=== PATIENT | female | born 1965 | race Caucasian/White ===

== ENCOUNTER → 2016-11-09 | Outpatient (CLI) | payer OTHER | END | disposition home or self-care (01) | LOC: KCIC MAMMO 13:18 | PROVIDERS: ATTEND Family Medicine ==

== ENCOUNTER → 2016-11-11 | Outpatient (CLI) | payer OTHER ==
--- NOTE | 2016-11-11 14:38 | KCIC ---
DATE: 11/11/2016 EXAM: MAMMO EM RALPH WIGGINS, BREAST LEFT HISTORY: Follow-up nodule COMPARISON: 06/24/2015, 06/11/2015 The breast parenchyma is heterogeneously dense, which could reduce sensitivity of mammography. Breast parenchyma level C. FINDINGS: 2-D and 3-D tomosynthesis imaging was performed in CC and MLO projections. There is a smooth 6 mm nodule in the left retroareolar region, best seen on the oblique tomogram #48 and cc tomogram #38. It lies just medial to the midline at the 9:00 location. The possible nodule seen just lateral to the midline of the left breast on the previous studies is not confirmed on today's tomographic images and probably represented a summation shadow. No new or enlarging breast densities are seen. Benign-appearing lymph node type densities are present in the left axillary tail region. No suspicious microcalcifications have developed. Left breast ultrasound, 11/11/2016: A targeted ultrasound of the left breast was performed at the 9:00 location. There is an oval-shaped smooth 8 x 4 x 6 mm nodule which corresponds to the mammographic abnormality. Lines approximately 1 cm from the nipple. There are low level echoes with posterior acoustic enhancement. This nodule is wider than tall. It is probably a complicated cyst. We also scanned the 3:00 location and compared to the previous exam of 06/24/2015. Heterogeneous fibrocystic type changes are again noted. No mass is evident in this region. IMPRESSION: Probable small complicated cyst at the 9:00 retroareolar location on the left. Follow-up left breast ultrasound in 6 months and bilateral mammography in one year is suggested. BI-RADS CATEGORY: 3 PROBABLY BENIGN FINDING(S)-SHORT INTERVAL FOLLOW-UP SUGGESTED RECOMMENDED FOLLOW-UP: 6M 6 MONTH FOLLOW-UP PQRS compliance statement: Patient information was entered into a reminder system with a target due date for the next mammogram. Mammography is a sensitive method for finding small breast cancers, but it does not detect them all and is not a substitute for careful clinical examination. A negative mammogram does not negate a clinically suspicious finding and should not result in delay in biopsying a clinically suspicious abnormality. "Our facility is accredited by the [employer] Mammography [employer]."
== END | disposition home or self-care (01) ==
LOC: KCIC MAMMO 13:02
PROVIDERS: ATTEND Family Medicine
DX: N63 Unspecified lump in breast (principal)
CPT/HCPCS: 76641; G0204; G0279; 77062; 77066

== ENCOUNTER → 2017-11-18 | Outpatient (CLI) | payer OTHER ==
--- NOTE | 2017-11-18 14:15 | KCIC ---
Bilateral diagnostic digital mammograms with 3-D tomosynthesis: Reason for examination: Follow-up left breast nodule. Comparison is made to previous studies dated 11/11/2016 and 06/19/2015. Bilateral mammograms in CC and oblique projections were obtained with 2-D imaging and 3-D tomosynthesis imaging on a Siemens Inspiration unit and reviewed on the workstation. Interpretation was made with the benefit of CAD. The skin and nipples show no abnormalities. No abnormal axillary lymph nodes are seen. The breast parenchyma is heterogeneously dense. (Breast density: Category C.) There continues to be a small circumscribed nodule in the retroareolar 9:00 position of the left breast which appears to be slightly smaller. There are no new dominant masses, suspicious calcifications or architectural distortion. Impression: Small nodule persists in the left retroareolar 9:00 position but appears to be slightly smaller. Ultrasound to follow. Your patient's mammogram demonstrates that she has dense breast tissue (breast density category C or D), which could hide abnormalities, and if she has other risk factors for breast cancer that have been identified, she might benefit from supplemental screening tests that may be suggested by you as her ordering physician. Dense breast tissue, in and of itself, is a relatively common condition. Therefore, this information is not provided to cause undue concern, but rather to raise your awareness and to promote discussion with your patient regarding the presence of other risk factors, in addition to dense breast tissue. Your patient's mammography results will be sent to her. BI-RAD Category 0: Incomplete. Needs additional imaging evaluation. Left breast ultrasound: Comparison is made to previous study dated 11/11/2016. In the 9:00 position 1 cm from the nipple, there continues to be a small anechoic lesion consistent with a cyst measuring 6.2 x 4.8 mm in greatest dimensions. No solid suspicious nodules are seen. No abnormal appearing lymph nodes are seen in the axilla. IMPRESSION: Small cyst in the 9:00 position which shows a slight decrease in size. No solid or suspicious nodules seen. Recommend routine mammographic follow-up. BI-RADS Category 2: Benign. "Our facility is accredited by the [employer] Mammography [employer]." This patient's information has been entered into a reminder system for the patient to be notified with the results of her examination and a target date for the next mammogram. Electronically signed by: Sabina Juares MD (11/18/2017 2:11 PM) [email or web address]
== END | disposition home or self-care (01) ==
LOC: KCIC MAMMO 12:59
PROVIDERS: ATTEND Internal Medicine
DX: N63.22 Unspecified lump in the left breast, upper inner quadrant (principal)
CPT/HCPCS: 76641; 77066; G0279; 77062

== ENCOUNTER → 2018-12-18 | Outpatient (CLI) | payer OTHER ==
--- NOTE | 2018-12-18 17:18 | KCIC ---
Bilateral digital screening mammograms with 3-D tomosynthesis: Reason for examination: Routine screening. Comparison is made to previous studies dated back to 06/11/2015. Bilateral mammograms in CC and oblique projections were obtained with 2-D imaging and 3-D tomosynthesis imaging on a Siemens Inspiration unit and reviewed on the workstation. Interpretation was made with the benefit of CAD. The skin and nipples show no abnormalities. No abnormal axillary lymph nodes are seen. The breast parenchyma shows scattered fatty and fibroglandular density. (Breast density: Category B.) There continues to be some asymmetric parenchyma in the retroareolar position of the left breast seen best on oblique view which is unchanged. There are no new dominant masses, suspicious calcifications or architectural distortion. Impression: No evidence of malignancy. Recommend routine screening. BI-RAD Category 2: Benign. "Our facility is accredited by the [employer] Mammography [employer]." This patient's information has been entered into a reminder system for the patient to be notified with the results of her examination and a target date for the next mammogram. Electronically signed by: Sabina Juares MD (12/18/2018 5:15 PM) [id number]
== END | disposition home or self-care (01) ==
LOC: KCIC MAMMO 15:16
PROVIDERS: ATTEND Internal Medicine
DX: Z12.31 Encounter for screening mammogram for malignant neoplasm of breast (principal); N64.89 Other specified disorders of breast
CPT/HCPCS: 77063; 77067

== ENCOUNTER → 2020-02-04 | Outpatient (CLI) | payer OTHER ==
--- NOTE | 2020-02-04 15:58 | KCIC ---
Bilateral digital screening mammograms with 3-D tomosynthesis: Reason for examination: Routine screening. Comparison is made to previous studies dated back to 04/23/2014. Bilateral mammograms in CC and oblique projections were obtained with 2-D imaging and 3-D tomosynthes is imaging on a Siemens Inspiration unit and reviewed on the workstation. Interpretation was made wit h the benefit of CAD. The skin and nipples show no abnormalities. No abnormal axillary lymph nodes are seen. The breast par enchyma shows scattered fatty and fibroglandular density. (Breast density: Category B.) There are con tinues to be some asymmetric parenchyma in the right breast which is unchanged. There are no new matt nant masses, suspicious calcifications or architectural distortion. Impression: No evidence of malignancy. Recommend routine screening. BI-RAD Category 2: Benign. "Our facility is accredited by the [employer] Mammography [employer]." This patient's information has been entered into a reminder system for the patient to be notified wit h the results of her examination and a target date for the next mammogram. Electronically signed by: Sabina Juares MD (02/04/2020 3:56 PM) [email or web address]
== END ==
LOC: KCIC MAMMO 14:49
PROVIDERS: ATTEND Internal Medicine
DX: Z12.31 Encounter for screening mammogram for malignant neoplasm of breast (principal)
CPT/HCPCS: 77063; 77067

== ENCOUNTER → 2020-03-21 | Outpatient (CLI) | payer OTHER ==
--- NOTE | 2020-03-21 14:40 | RAD ---
Abdominal ultrasound without comparison for elevated liver enzymes. TECHNIQUE AND FINDINGS: Real-time grayscale and color Doppler evaluation of the abdominal organs is p erformed. The aorta is nonaneurysmal. The pancreas is largely obscured by overlying bowel gas and hab itus. No gross abnormalities of the visualized portions the pancreas are identified. IVC is patent. L iver measures 13.8 cm and is normal in appearance with no intra or extrahepatic biliary ductal dilata tion. Portal vein is patent and hepatopedal. Gallbladder surgically absent. Common bile duct measures 2 mm in diameter. The right kidney measures 9.2 x 4.4 cm in the left measures 10.0 x 4.4 cm. No hydr onephrosis or parenchymal abnormality of either kidney. Normal color flow to both kidneys. The spleen is partially obscured, but measures 9.8 cm and is normal in its visualized extent. IMPRESSION: 1. Postsurgical changes of prior cholecystectomy with no sonographically discernible acute abdominal abnormality. Evaluation of the pancreas and spleen is limited. Electronically signed by: Ion Castillo MD (03/21/2020 2:38 PM) [id number]
== END ==
LOC: US 10:48
PROVIDERS: ATTEND Internal Medicine
DX: R94.5 Abnormal results of liver function studies (principal); Z90.49 Acquired absence of other specified parts of digestive tract
CPT/HCPCS: 76700

== ENCOUNTER → 2021-05-22 | Outpatient (CLI) | payer OTHER ==
--- NOTE | 2021-05-22 14:20 | KCIC ---
Bilateral digital screening mammograms with 3-D tomosynthesis: Reason for examination: Routine screening. Comparison is made to previous study dated studies dated back to 11/11/2016. Bilateral mammograms in CC and oblique projections were obtained with 2-D imaging and 3-D tomosynthes is imaging on a Siemens Inspiration unit and reviewed on the workstation. Interpretation was made wit h the benefit of CAD. The skin and nipples show no abnormalities. No abnormal axillary lymph nodes are seen. The breast par enchyma shows scattered fatty and fibroglandular density. (Breast density: Category B.) There is smal l 6.6 mm nodule at the 12:00 position of the right breast 6 cm posterior to the nipple. Recommend fur ther evaluation with ultrasound. There are no other new dominant masses, suspicious calcifications or architectural distortion. Impression: 6.6 mm nodule at the 12:00 position of the right breast 6 cm posterior to the nipple. Recommend furth er evaluation with ultrasound. BI-RAD Category 0: Incomplete. Needs additional imaging evaluation. "Our facility is accredited by the [employer] Mammography [employer]." This patient's information has been entered into a reminder system for the patient to be notified wit h the results of her examination and a target date for the next mammogram. Electronically signed by: Sabina Juares MD (05/22/2021 2:18 PM) [email or web address]
== END ==
LOC: KCIC MAMMO 13:30
PROVIDERS: ATTEND Internal Medicine
DX: Z12.31 Encounter for screening mammogram for malignant neoplasm of breast (principal)
CPT/HCPCS: 77063; 77067

== ENCOUNTER → 2021-06-02 | Outpatient (CLI) | payer OTHER ==
--- NOTE | 2021-06-02 15:11 | KCIC ---
Right breast ultrasound: Reason for examination: Nodular density on screening mammogram. Comparison is made to mammographic exam dated 05/22/2021. Ultrasound examination of the right breast and axilla was performed. There is some ductal ectasia in the retroareolar position. No other discrete cystic or solid nodules are seen within the right breast. No abnormal appearing lymph nodes are seen in the axilla. IMPRESSION: Ductal ectasia in the retroareolar position but no other focal abnormality seen. Recommend reevaluati on with mammograms and ultrasound in 6 months. BI-RADS Category 3: Probably Benign. "Our facility is accredited by the [employer] Mammography [employer]." This patient's information has been entered into a reminder system for the patient to be notified wit h the results of her examination and a target date for the next mammogram. Electronically signed by: Sabina Juares MD (06/02/2021 3:09 PM) [email or web address]
== END ==
LOC: KCIC US 12:53
PROVIDERS: ATTEND Internal Medicine
DX: N60.41 Mammary duct ectasia of right breast (principal)
CPT/HCPCS: 76641